=== PATIENT | female | born 1980 | race African-American/Black ===

== ENCOUNTER 2022-06-21 01:10 | Emergency (ER) | payer OTHER, SELFPAY ==
[2022-06-21] MEDS ORDERED: SUMAtriptan Succinate 6 MG/0.5 ML VIAL ONE (02:30)
[2022-06-21] MEDS ORDERED: diphenhydrAMINE 50 MG/ML VIAL ONE (02:30)
[2022-06-21] MEDS ORDERED: Metoclopramide HCl 10 MG/2 ML VIAL ONE (02:30)
[2022-06-21] MEDS ORDERED: Magnesium 2 GM/50 ML BAG (IN WATER) ONE (02:31)
[2022-06-21] MEDS ORDERED: Ketorolac Tromethamine 30 MG/ML VIAL ONE (02:31)
== END 2022-06-21 04:16 | disposition home or self-care (01) ==
LOC: CSHERS 01:10
DX: G43.909 Migraine, unspecified, not intractable, without status migrainosus (principal); F17.210 Nicotine dependence, cigarettes, uncomplicated
CPT/HCPCS: 96365; 96372; 96375; J1200; J1885; J2765; J3030; J3475

== ENCOUNTER 2024-11-21 14:56 | Outpatient (CLI) | payer OTHER | END 2024-11-21 14:57 | disposition home or self-care (01) | LOC: CSHMAMMO 14:56 | PROVIDERS: ATTEND Family Medicine | DX: N64.89 Other specified disorders of breast (principal) | CPT/HCPCS: G0279 ==